=== PATIENT | female | born 1995 | race Caucasian/White ===

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

== ENCOUNTER 2017-06-17 21:46 | Emergency (ER) | payer MEDICAID ==
[~2017-06-17] VITALS: Ht 157.5 cm; Wt 61.9 kg
[~2017-06-17 21:46] MED LIST changes: +AMOX500T PO; +BCP; +MULT-257 PO; -OMNIPAQUE 350 MG/ML, 100ML BOTTLE ONE
[2017-06-17] MEDS ORDERED: OMNIPAQUE 350 MG/ML, 100ML BOTTLE ONE (22:41)
[2017-06-17] MEDS ORDERED: ONDANSETRON 2MG/ML, 2ML IVPush ONE (23:00)
[2017-06-17] MEDS ORDERED: SODIUM CHLORIDE 0.9% 1,000ML IVBOLUS ONE (23:00)
[2017-06-17] MEDS ORDERED: ONDANSETRON 2MG/ML, 2ML ONE (23:03)
[2017-06-17 23:31] VITALS: BP 125/74
== END 2017-06-18 00:11 | disposition home or self-care (01) ==
LOC: ED 22:17
DX: K92.1 Melena (principal)
CPT/HCPCS: 36415; 74177; 85014; 85018; 96361; 96374; 99285; J2405; J7030; Q9967